=== PATIENT | male | born 1960 | race Caucasian/White ===

== ENCOUNTER 2025-02-16 08:23 | Day surgery (SDC) | payer OTHER ==
[~2025-02-16 08:23] MED LIST: Sodium Chloride 0.9% 10 ML Syringe FLUSH PRN; Sodium Chloride 0.9% 10 ML Syringe FLUSH SCH
[2025-02-16] MEDS: Lactated Ringers 1,000 ML IV SCH (09:13)
[2025-02-16] MEDS: oxyCODONE ER 10 MG TAB.ER PO ONE (09:43)
[2025-02-16] MEDS ORDERED: fentaNYL 100 MCG/2 ML SDV ONE (09:47)
[2025-02-16] MEDS ORDERED: Midazolam 1 MG/ML 2 ML SDV ONE (09:47)
[2025-02-16] MEDS ORDERED: propofoL 500 MG/50 ML 50 ML ONE (09:47)
[2025-02-16] MEDS ORDERED: Ropivacaine 0.5% 5 MG/ML 30 ML SDV ONE (09:52)
[2025-02-16] MEDS ORDERED: Dexamethasone 4 MG/ML 5 ML MDV ONE (09:52)
[2025-02-16] MEDS ORDERED: dexmedeTOMIDine HCl 200 MCG/2 ML SDV ONE (09:52)
[2025-02-16] MEDS ORDERED: ePHEDrine 50 MG/ML SDV ONE (10:44)
[2025-02-16] MEDS ORDERED: Ondansetron 4 MG/2 ML SDV IVPUSH PRN (10:49)
[2025-02-16] MEDS ORDERED: fentaNYL 100 MCG/2 ML SDV IVPUSH PRN (10:49)
[2025-02-16] MEDS ORDERED: Lactated Ringers 1,000 ML ONE (11:11)
[2025-02-16] MEDS ORDERED: Propofol 200 MG/20 ML SDV ONE (11:24)
[2025-02-16] MEDS: Morphine 8 MG, EPINEPHrine 0.3 MG, Cefuroxime 750 MG, Ketorolac 30 MG, Sodium Chloride ... PRN (11:30)
[2025-02-16] MEDS ORDERED: Phenylephrine 1% 10 MG/ML SDV ONE (11:38)
[2025-02-16] MEDS: Triamcinolone Acetonide 40 MG/ML 1 ML SDV ONE (11:45)
== END 2025-02-16 15:33 | disposition home or self-care (01) ==
LOC: JD.SDS 08:23
PROVIDERS: ATTEND Orthopaedic Surgery
DX: M17.0 Bilateral primary osteoarthritis of knee (principal); I10 Essential (primary) hypertension; Z79.899 Other long term (current) drug therapy
CPT/HCPCS: 0055T; 20610; 27447; 64447; 73560; 97116; 97161; A9270; C1713; C1776; J0169; J0665; J0690; J0697; J1100; J1885; J2250; J2272; J2371; J2704; J2795; J3010; J3301; J3373; J7120; 01402; J3490